=== PATIENT | male | born 1945 | race Caucasian/White ===

== ENCOUNTER 2023-05-26 15:59 | Emergency (ER) | payer MEDICARE, BC ==
[2023-05-26] MEDS ORDERED: Sodium Chloride 0.9% 10 ML Syringe FLUSH PRN (16:30)
[2023-05-26] MEDS: Morphine 4 MG/ML VIAL IVPUSH ONE ×2 (16:30→17:21)
[2023-05-26] MEDS: Morphine 4 MG/ML VIAL ONE ×2 (16:34→17:26)
[2023-05-26 16:37] LABS: BASOPHILS ABSOLUTE AUTO 0.04 K/uL (0.02-0.10); BASOPHILS PERCENT AUTO 0.3 % (0.0-0.5); EOSINOPHILS ABSOLUTE AUTO 0.08 K/uL (0.04-0.40); EOSINOPHILS PERCENT AUTO 0.6 % (1.0-5.0); HEMATOCRIT 38.5 % (40.0-54.0); LYMPHOCYTES ABSOLUTE AUTO 7.45 K/uL (1.50-4.00); MEAN CORPUSCULAR HEMOGLOBIN 31.2 pg (27.0-32.0); MEAN CORPUSCULAR HGB CONC 33.8 g/dL (31.0-35.0); MEAN CORPUSCULAR VOLUME 92 fL (76-96); MEAN PLATELET VOLUME 9.4 fL (6.0-10.0); MONOCYTES ABSOLUTE AUTO 1.31 K/uL (0.20-0.80); MONOCYTES PERCENT AUTO 9.8 % (3.0-10.0); NEUTROPHILS ABSOLUTE AUTO 4.42 K/uL (2.00-7.50); NEUTROPHILS PERCENT AUTO 33.3 % (45.0-70.0); PLATELET COUNT,PLT 221 K/uL (150-400); RED BLOOD CELL COUNT 4.17 M/uL (4.50-6.50); RED CELL DISTRIBUTION WIDTH 13.2 % (11.0-16.0); WHITE BLOOD CELL COUNT,WBC 13.3 K/uL (4.0-11.0)
[2023-05-26] MEDS: Sodium Chloride 0.9% 1,000 ML IV SCH (16:39)
[2023-05-26] MEDS: HYDROmorphone 2 MG/ML Syringe IVPUSH ONE (16:42)
[2023-05-26] MEDS: HYDROmorphone 2 MG/ML Syringe ONE (16:48)
[2023-05-26 16:50] LABS: ALBUMIN 3.8 g/dL (3.4-5.0); ANION GAP 16.8 mmol/L (5.0-15.0); BILIRUBIN TOTAL 0.6 mg/dL (0.0-1.0); BUN/CREATININE RATIO 24.4 (6-25); CALCIUM 9.5 mg/dL (8.5-10.1); CARBON DIOXIDE,CO2 26.8 mmol/L (21.0-32.0); CREATININE 1.23 mg/dL (0.70-1.30); EST CRCL DRUG DOSING (CG) 47.9 mL/min; POTASSIUM,K 4.6 mmol/L (3.5-5.1); PROTEIN TOTAL,TP 7.7 g/dL (6.4-8.2)
[2023-05-26] MEDS: Ondansetron 4 MG Tab.DIS PO ONE (16:51)
[2023-05-26] MEDS: Ondansetron 4 MG Tab.DIS ONE (17:14)
[2023-05-26] MEDS: Sodium Chloride 0.9% 50 ML IV ONE (17:28)
[2023-05-26] MEDS: Iopamidol 612 MG/ML 100 ML Bottle IV SCH (17:28)
[2023-05-26] MEDS ORDERED: Naloxone 2 MG/2 ML Syringe IVPUSH PRN (17:33)
[2023-05-26] MEDS: Pantoprazole 80 MG in Sodium Chloride 0.9% 100 ML IV ONE (17:40)
[2023-05-26] MEDS: fentaNYL 100 MCG/2 ML SDV IVPUSH ONE (17:55)
[2023-05-26] MEDS: fentaNYL 100 MCG/2 ML SDV ONE (18:03)
[2023-05-26] MEDS: Pantoprazole 40 MG Vial ONE (18:04)
[2023-05-26] MEDS: Piperacillin/Tazobactam 3.375 GM in Sodium Chloride 0.9% 100 ML IV STA (18:12)
== END 2023-05-26 19:26 ==
LOC: LB.ED 15:59
DX: R10.13 Epigastric pain (principal)
CPT/HCPCS: 36415; 74177; 80053; 83605; 83690; 85025; 87040; 96361; 96365; 96367; 96375; 96376; 99285; A0425; A0429; C9113; J1170; J2270; J2543; J3010; J3490; J7030; Q0162; Q9967